=== PATIENT | female | born 2000 | race Caucasian/White ===

== ENCOUNTER 2023-01-14 16:39 | Emergency (ER) | payer SELFPAY ==
[~2023-01-14] VITALS: Ht 160 cm; Wt 63.0 kg
[2023-01-14 16:48] VITALS: BP 128/73
[2023-01-14 17:00] VITALS: BP 118/79
[2023-01-14 17:15] VITALS: BP 130/69
[2023-01-14 17:30] VITALS: BP 126/74
[2023-01-14] MEDS ORDERED: TRIAMCINOLON0.11 EX (17:35)
[2023-01-14] MEDS ORDERED: PREDNISONE10 MG PO (17:36)
[2023-01-14 17:46] VITALS: BP 105/68
[2023-01-14 17:49] VITALS: BP 105/68
== END 2023-01-14 17:52 | disposition home or self-care (01) | DRG 607 ==
LOC: ED 16:39
DX: R21 Rash and other nonspecific skin eruption (principal)

== ENCOUNTER 2024-07-04 09:49 | Emergency (ER) | payer SELFPAY ==
[2024-07-04] VITALS (8 sets, daily range): BP systolic 98–122; BP diastolic 60–101
[~2024-07-04] VITALS: Ht 160 cm; Wt 72.0 kg
[~2024-07-04 09:49] MED LIST: PREDNISONE10 MG PO; TRIAMCINOLON0.11 EX
[2024-07-04] MEDS ORDERED: BACTRIM DS1 TAB PO (12:32)
[2024-07-04] MEDS ORDERED: CEPHALEXIN500 M1 PO (12:32)
== END 2024-07-04 12:45 | disposition home or self-care (01) | DRG 601 ==
LOC: ED 09:49
DX: N61.0 Mastitis without abscess (principal)